=== PATIENT | male | born 1935 | race Caucasian/White ===

== ENCOUNTER 2022-02-24 13:42 | Inpatient (IN) ==
[2022-02-24 14:40] LABS: Basophils % 0.1 % (0.0-0.8); Eosinophils % 0.1 % (0.00-10.9); Hematocrit 43.4 VOL% (42.0-52.0); Hemoglobin 14.2 GM/DL (14.0-18.0); Lymphocytes # 0.2 10*3/uL (1.4-4.0); Lymphocytes % 1.4 % (21.2-54.2); Mean Corpuscular HGB Conc 32.7 GM/DL (32-36); Mean Corpuscular Volume 93.5 FL (87-102); Mean Platelet Volume 9.9 FL (9.6-12.0); Monocytes # 0.8 10*3/uL (0.11-0.8); Monocytes % 5.8 % (1.7-12.7); Platelet Count 115 T/CUMM (130-400); Red Blood Count 4.64 MC/CUMM (3.8-5.5); Red Cell Distribution Width 13.4 % (9.3-17.3); White Blood Count 13.8 T/CUMM (4-12)
[2022-02-24 15:02] LABS: Band Neutrophils 12 % (0-10); Lymphocytes 1 % (20-55); Platelet Estimate Decreased
[2022-02-24 15:07] LABS: Calcium 8.5 MG/DL (8.5-10.1); Osmolality,Calculated 285.1 MOS/KG (273-304); Potassium 4.6 MMOL/L (3.5-5.1)
[2022-02-24] MEDS ORDERED: ONDANSETRON 4 MG/2 ML VIAL IV PRN (18:16)
[2022-02-24] MEDS ORDERED: NITROGLYCERIN SL 0.4 MG TABLET SL PRN (18:22)
[2022-02-24] MEDS ORDERED: CLOPIDOGREL 300 MG TABLET PO STA (18:24)
[2022-02-24] MEDS ORDERED: CLOPIDOGREL 75 MG TABLET PO STA (18:24)
[2022-02-24] MEDS ORDERED: HEPARIN DRIP 25,000 UNITS/500 ML PREMIX IV SCH (18:30)
[2022-02-24 19:06] LABS: Risk Ratio 2.92; Thyroid Stimulating Hormone 3.58 uIU/ml (0.358-3.74); VLDL Cholesterol 32.8 MG/DL
[2022-02-24] MEDS: INSULIN LISPRO 100 UNIT/ML SUBCUT SCH (22:15)
[2022-02-24] MEDS: FINASTERIDE 5 MG TABLET PO SCH (22:16)
[2022-02-25 02:26] LABS: Basophils % 0.2 % (0.0-0.8); Eosinophils # 0.1 10*3/uL (0.0-0.87); Hematocrit 40.9 VOL% (42.0-52.0); Hemoglobin 13.5 GM/DL (14.0-18.0); Immature Granulocytes % 0.6 %; Immature Granulocytes Absolute 0.06 #; Lymphocytes # 0.9 10*3/uL (1.4-4.0); Lymphocytes % 8.5 % (21.2-54.2); Mean Platelet Volume 10.4 FL (9.6-12.0); Monocytes # 0.7 10*3/uL (0.11-0.8); Monocytes % 7.1 % (1.7-12.7); Neutrophils % 82.6 % (38.7-73.9); Platelet Count 130 T/CUMM (130-400); Red Cell Distribution Width 13.2 % (9.3-17.3); White Blood Count 10.4 T/CUMM (4-12)
[2022-02-25 02:42] LABS: Albumin 3.6 G/DL (3.4-5.0); Bilirubin,Total 0.7 MG/DL (0.20-1.00); Calcium 8.7 MG/DL (8.5-10.1); Osmolality,Calculated 277.4 MOS/KG (273-304); Potassium 4.9 MMOL/L (3.5-5.1); Total Protein 6.8 G/DL (6.4-8.2)
[2022-02-25] MEDS ORDERED: HEPARIN 5,000 UNIT/1 ML VIAL IV ONE (03:31)
[2022-02-25 07:16] LABS: CKMB % 4.33 %
[2022-02-25] MEDS: ASPIRIN CHEW 81 MG TABLET PO SCH (09:32)
[2022-02-25] MEDS: MULTIVITAMIN (CENTRUM) TABLET PO SCH (09:32)
[2022-02-25] MEDS: CLOPIDOGREL 75 MG TABLET PO SCH (09:33)
[2022-02-25] MEDS: PANTOPRAZOLE 40 MG TABLET PO SCH (09:33)
[2022-02-25] MEDS: ENOXAPARIN 100 MG/ML SYRINGE SUBCUT SCH (09:37)
[2022-02-25] MEDS: ACETYLCYSTEINE 600 MG CAPSULE PO SCH ×2 (09:37→21:19)
[2022-02-25] MEDS: INSULIN LISPRO 100 UNIT/ML SUBCUT SCH ×5 (09:38→22:19)
[2022-02-25] MEDS: SODIUM CHLORIDE 0.9% 1,000 ML IV SCH ×2 (12:09→22:20)
[2022-02-25] MEDS: carvediloL 3.125 MG TABLET PO SCH (17:15)
[2022-02-25] MEDS: FINASTERIDE 5 MG TABLET PO SCH (21:19)
[2022-02-26 00:30] LABS: Squamous Epithelial Cell,Urine Occasional /HPF (0-10); Triple Phosphate Crystal,Urine Occasional /HPF (Few)
[2022-02-26 00:37] LABS: Barbiturates Screen,Urine Negative (Negative); Benzodiazepines Screen,Urine Negative (Negative); Bilirubin,Urine Negative (Negative); Blood, Urine Moderate mg/dL (Negative); Cannabinoid Screen,Urine Negative (Negative); Glucose,Urine (UA) Negative (Negative); Ketones,Urine Negative (Negative); Nitrite,Urine Positive (Negative); Opiate Screen,Urine Negative (Negative); Phencyclidine Screen,Urine Negative (Negative); Protein,Urine 30 mg/dL (Negative); Urine Appearance SL CLOUDY (Clear); Urine Color Yellow (Yellow); Urine Urobilinogen 0.2 eU/dL (<2.0); Urine pH 8.5 (4.5-8.0)
[2022-02-26 06:25] LABS: Eosinophils # 0.4 10*3/uL (0.0-0.87); Hematocrit 36.5 VOL% (42.0-52.0); Hemoglobin 12.1 GM/DL (14.0-18.0); Immature Granulocytes % 0.4 %; Immature Granulocytes Absolute 0.03 #; Lymphocytes # 0.9 10*3/uL (1.4-4.0); Lymphocytes % 12.5 % (21.2-54.2); Mean Corpuscular HGB Conc 33.2 GM/DL (32-36); Mean Corpuscular Volume 92.9 FL (87-102); Monocytes # 0.6 10*3/uL (0.11-0.8); Monocytes % 8.6 % (1.7-12.7); Neutrophils % 73.5 % (38.7-73.9); Platelet Count 115 T/CUMM (130-400); Red Blood Count 3.93 MC/CUMM (3.8-5.5); Red Cell Distribution Width 13.3 % (9.3-17.3)
[2022-02-26 06:46] LABS: Platelet Estimate Adequate
[2022-02-26 06:47] LABS: Osmolality,Calculated 287.5 MOS/KG (273-304); Potassium 4.3 MMOL/L (3.5-5.1)
[2022-02-26] MEDS ORDERED: DIAZEPAM 5 MG TABLET PO ONE (07:30)
[2022-02-26] MEDS ORDERED: diphenhydrAMINE CAP 25 MG CAPSULE PO ONE (07:30)
[2022-02-26] MEDS: ASPIRIN CHEW 81 MG TABLET PO SCH (08:38)
[2022-02-26] MEDS: carvediloL 3.125 MG TABLET PO SCH ×2 (08:39→16:50)
[2022-02-26] MEDS: CLOPIDOGREL 75 MG TABLET PO SCH (08:39)
[2022-02-26] MEDS: INSULIN LISPRO 100 UNIT/ML SUBCUT SCH ×4 (08:40→21:03)
[2022-02-26] MEDS: MULTIVITAMIN (CENTRUM) TABLET PO SCH (08:42)
[2022-02-26] MEDS: PANTOPRAZOLE 40 MG TABLET PO SCH (08:42)
[2022-02-26] MEDS ORDERED: fentaNYL 100 MCG/2 ML VIAL ONE (08:44)
[2022-02-26] MEDS ORDERED: MIDAZOLAM 2 MG/2 ML VIAL ONE (08:44)
[2022-02-26] MEDS: SODIUM CHLORIDE 0.9% 1,000 ML IV SCH ×2 (08:48→16:51)
[2022-02-26] MEDS: ACETYLCYSTEINE 600 MG CAPSULE PO SCH ×2 (12:56→21:03)
[2022-02-26] MEDS: ENOXAPARIN 100 MG/ML SYRINGE SUBCUT SCH (12:57)
[2022-02-26] MEDS: cefTRIAXone 1,000 MG in SODIUM CHLORIDE 0.9% 100 ML IV SCH (12:57)
[2022-02-26] MEDS: FINASTERIDE 5 MG TABLET PO SCH (21:03)
[2022-02-27] MEDS: SODIUM CHLORIDE 0.9% 1,000 ML IV SCH (03:49)
[2022-02-27 04:35] LABS: Basophils % 0.1 % (0.0-0.8); Eosinophils # 0.4 10*3/uL (0.0-0.87); Eosinophils % 5.9 % (0.00-10.9); Hemoglobin 11.7 GM/DL (14.0-18.0); Immature Granulocytes % 0.6 %; Immature Granulocytes Absolute 0.04 #; Lymphocytes # 0.8 10*3/uL (1.4-4.0); Lymphocytes % 11.3 % (21.2-54.2); Mean Corpuscular HGB Conc 33.4 GM/DL (32-36); Mean Corpuscular Volume 92.1 FL (87-102); Mean Platelet Volume 10.2 FL (9.6-12.0); Monocytes # 0.6 10*3/uL (0.11-0.8); Monocytes % 8.3 % (1.7-12.7); Neutrophils % 73.8 % (38.7-73.9); Platelet Count 117 T/CUMM (130-400); Red Cell Distribution Width 13.3 % (9.3-17.3); White Blood Count 7.1 T/CUMM (4-12)
[2022-02-27 04:53] LABS: Osmolality,Calculated 283.5 MOS/KG (273-304); Potassium 4.2 MMOL/L (3.5-5.1)
[2022-02-27] MEDS: INSULIN LISPRO 100 UNIT/ML SUBCUT SCH ×2 (08:31→12:40)
[2022-02-27] MEDS: ASPIRIN CHEW 81 MG TABLET PO SCH (08:32)
[2022-02-27] MEDS: MULTIVITAMIN (CENTRUM) TABLET PO SCH (08:32)
[2022-02-27] MEDS: carvediloL 3.125 MG TABLET PO SCH (08:32)
[2022-02-27] MEDS: CLOPIDOGREL 75 MG TABLET PO SCH (08:32)
[2022-02-27] MEDS: ACETYLCYSTEINE 600 MG CAPSULE PO SCH (08:32)
[2022-02-27] MEDS: PANTOPRAZOLE 40 MG TABLET PO SCH (08:32)
[2022-02-27] MEDS: cefTRIAXone 1,000 MG in SODIUM CHLORIDE 0.9% 100 ML IV SCH (08:34)
[2022-02-27] MEDS: ENOXAPARIN 100 MG/ML SYRINGE SUBCUT SCH (09:06)
[2022-02-27 15:57] VITALS: BP 126/73
[2022-02-27] MEDS ORDERED: APIXABAN 5 MG TABLET PO SCH (21:00)
[2022-03-06] MEDS ORDERED: APIXABAN 5 MG TABLET PO SCH (21:00)
== END 2022-02-27 15:45 | disposition home health service (06) | DRG 281 ==
LOC: N.ED 13:42 → N.EDINP 18:46 → SUATTDRO 18:46 → N.TELEN 18:48
PROVIDERS: ADMIT Internal Medicine; ATTEND Internal Medicine
PROC: CLCCHCL (ICD-10-PCS; 2022-02-26 09:15)